=== PATIENT | female | born 1945 | race Caucasian/White ===

== ENCOUNTER 2021-09-09 16:17 | Inpatient (IN) ==
[2021-09-09] MEDS ORDERED: Ondansetron 4 MG/2 ML VIAL IVP PRN (19:34)
[2021-09-09] MEDS ORDERED: Naloxone 0.4 MG/ML INJ IVP PRN (19:34)
[2021-09-09 19:58] LABS: Bacteria,Urine Few per hpf (None-Few); Bilirubin,Urine Negative (Negative); Blood,Urine Negative (Negative); Clarity,Urine Turbid (Clear); Color,Urine Light-Yellow (Yellow); Glucose,Urine (UA) Normal (Normal); Ketones,Urine Negative (Negative); Leukocyte Esterase,Urine Negative (Negative); Nitrite,Urine Negative (Negative); Protein,Urine Trace mg/dL (Neg-Trace); RBC,Urine 0-3 per hpf (0-3); Specific Gravity,Urine 1.021 (1.010-1.025); Squamous Epithelial Cell,Urine Few per hpf (None-Few); Urobilinogen,Urine Normal (Normal); WBC,Urine 0-3 per hpf (0-3)
[2021-09-09 20:01] LABS: Amphetamine Screen,Urine Negative ng/mL (Cutoff=1000); Barbiturate Screen,Urine Negative ng/mL (Cutoff=200); Benzodiazepines Screen,Urine Negative ng/mL (Cutoff=200); Cannabinoid Screen,Urine Negative ng/mL (Cutoff = 50); Cocaine Screen,Urine Negative ng/mL (Cutoff= 300); Opiate Screen,Urine Negative ng/mL (Cutoff=300); Phencyclidine Screen,Urine Negative ng/mL (Cutoff=25)
[2021-09-09] MEDS ORDERED: Perflutren Lipid Microsphere 1.3 ML in 0.9 % Sodium Chloride 8.7 ML IVP PRN (21:23)
[2021-09-10] MEDS: Acetaminophen 325 MG TABLET PO PRN ×2 (01:06→19:39)
[2021-09-10 03:25] LABS: Basophils % 0.2 %; Hematocrit 46.2 % (35.3-44.9); Hemoglobin 15.4 g/dL (11.5-15.4); Immature Granulocytes % 0.3 % (0-4); Lymphocytes # 0.9 K/mcL (0.6-4.6); Lymphocytes % 14.5 %; Mean Corpuscular HGB Conc 33.3 g/dL (31.6-35.5); Mean Corpuscular Hemoglobin 30.5 pg (28.0-33.3); Mean Corpuscular Volume 91.5 fL (83.0-100.0); Mean Platelet Volume 11.8 fL (9.4-12.4); Monocytes # 0.1 K/mcL (0.0-1.3); Monocytes % 1.2 %; Neutrophils # 4.9 K/mcL (1.6-8.9); Platelet Count 232 K/mcL (140-400); Red Blood Count 5.05 M/mcL (3.82-4.97); Red Cell Distribution Width 12.7 % (11.5-14.5); Segmented Neutrophils % 83.8 %; White Blood Count 5.9 K/mcL (4.3-11.1)
[2021-09-10 03:28] LABS: Prothrombin Time 11.4 Seconds (9.4-12.1)
[2021-09-10 03:47] LABS: Creatine Kinase 118 Units/L (30-223)
[2021-09-10 03:48] LABS: Albumin 4.2 g/dL (3.5-5.7); Albumin/Globulin Ratio 1.6 (1.1-2.2); Bilirubin,Indirect 0.4 mg/dL (0.0-1.0); Bilirubin,Total 0.4 mg/dL (0.3-1.0); Globulin 2.7 g/dL (2.4-3.5); Total Protein 6.9 g/dL (6.4-8.9)
[2021-09-10 03:55] LABS: BUN/Creatinine Ratio 19 (6-26); Blood Urea Nitrogen 20 mg/dL (8-23); Calcium 9.4 mg/dL (8.6-10.3); Carbon Dioxide 22 mEq/L (23-29); Chloride 108 mEq/L (98-107); Chol/HDL Ratio 2.9 (0-4.9); Cholesterol 217 mg/dL (< 200); Glucose 158 mg/dL (70-105); HDL Cholesterol 74 mg/dL (40-59); LDL Cholesterol,Calculated 133 mg/dL (< 100); Magnesium 2.1 mg/dL (1.6-2.6); Osmolality,Calculated 294 (280-300); Phosphorous 2.6 mg/dL (2.7-4.5); Potassium 4.1 mEq/L (3.5-5.1); Sodium 139 mEq/L (136-145); Thyroid Stimulating Hormone 0.628 mcIU/mL (0.340-5.600); Triglycerides 51 mg/dL (< 150); eGFR For African Americans > 60 (> 60); eGFR For Non-African Americans 51 (> 60)
[2021-09-10 03:57] LABS: Folate > 22.3 ng/mL (3.0-16.0); Vitamin B12 491 pg/mL (250-1100)
[2021-09-10 04:45] LABS: Estimated Average Glucose 111 mg/dl; Hemoglobin A1C 5.5 %
[2021-09-10 04:56] LABS: C-Reactive Protein 19 mg/L (Less than 10)
[2021-09-10] MEDS: cloNIDine HCL 0.1 MG TABLET PO SCH (08:50)
[2021-09-10] MEDS ORDERED: Isovue-370 500 ML BOTTLE IVP ONE (11:17)
[2021-09-10] MEDS: NETARSUDIL OP SCH (17:30)
[2021-09-10] MEDS: LATANOPROST OP SCH (17:30)
[2021-09-11] MEDS: Acetaminophen 325 MG TABLET PO PRN ×3 (00:57→21:16)
[2021-09-11] MEDS: *HR* Enoxaparin 40 MG/0.4 ML SYRINGE SQ SCH (05:06)
[2021-09-11] MEDS: cloNIDine HCL 0.1 MG TABLET PO SCH (08:18)
[2021-09-11] MEDS: LATANOPROST OP SCH (12:40)
[2021-09-11] MEDS: NETARSUDIL OP SCH (12:40)
[2021-09-12] MEDS: polyethylene glycoL 3350 17 GM POWD.PACK PO PRN ×2 (00:49→07:40)
[2021-09-12] MEDS: *HR* Enoxaparin 40 MG/0.4 ML SYRINGE SQ SCH (05:06)
[2021-09-12] MEDS: LATANOPROST OP SCH ×2 (07:40→19:31)
[2021-09-12] MEDS: Acetaminophen 325 MG TABLET PO PRN (07:40)
[2021-09-12] MEDS: cloNIDine HCL 0.1 MG TABLET PO SCH (07:40)
[2021-09-12] MEDS: NETARSUDIL OP SCH ×2 (07:40→19:31)
[2021-09-12] MEDS: Cholestyramine 4 GM POWD.PACK PO SCH (19:11)
[2021-09-13] MEDS: *HR* Enoxaparin 40 MG/0.4 ML SYRINGE SQ SCH (05:31)
[2021-09-13] MEDS: Cholestyramine 4 GM POWD.PACK PO SCH ×2 (07:11→17:12)
[2021-09-13] MEDS: cloNIDine HCL 0.1 MG TABLET PO SCH (09:41)
[2021-09-13] MEDS: polyethylene glycoL 3350 17 GM POWD.PACK PO PRN (09:42)
[2021-09-13] MEDS: LATANOPROST OP SCH (19:47)
[2021-09-13] MEDS: NETARSUDIL OP SCH (19:47)
[2021-09-14] MEDS: *HR* Enoxaparin 40 MG/0.4 ML SYRINGE SQ SCH (04:59)
[2021-09-14 06:25] LABS: Adenovirus Not Detected (Not Detect); Bordetella Pertussis Not Detected (Not Detect); Chlamydophila pneumoniae Not Detected (Not Detect); Coronavirus 229E Not Detected (Not Detect); Coronavirus HKU1 Not Detected (Not Detect); Coronavirus NL63 Not Detected (Not Detect); Coronavirus OC43 Not Detected (Not Detect); Human Metapneumovirus Not Detected (Not Detect); Human Rhinovirus/Enterovirus Not Detected (Not Detect); Influenza A Subtype 2009 H1 Not Detected (Not Detect); Influenza B Not Detected (Not Detect); Mycoplasma pneumoniae Not Detected (Not Detect); Parainfluenza Virus 1 Not Detected (Not Detect); Parainfluenza Virus 2 Not Detected (Not Detect); Parainfluenza Virus 3 Not Detected (Not Detect); Parainfluenza Virus 4 Not Detected (Not Detect); Respiratory Syncytial Virus Not Detected (Not Detect); SARS-CoV-2 Not Detected (Not Detect)
[2021-09-14 07:21] VITALS: O2SAT 97
[2021-09-14] MEDS: Cholestyramine 4 GM POWD.PACK PO SCH (07:33)
[2021-09-14] MEDS ORDERED: amLODIPine 5 MG TABLET PO SCH (09:00)
[2021-09-14] MEDS: cloNIDine HCL 0.1 MG TABLET PO SCH (09:45)
[2021-09-14 10:56] VITALS: BP 139/79; PULSE 86; TEMP 97.7
== END 2021-09-14 14:50 | disposition other institution (70) | DRG 65 ==
LOC: 3BNU → SUATTDRO 18:43
PROVIDERS: ADMIT Internal Medicine; ATTEND Registered Nurse